=== PATIENT | female | born 1970 | race African-American/Black ===

== ENCOUNTER 2019-02-25 04:56 | Emergency (ER) | payer MEDICAID ==
[~2019-02-25] VITALS: Ht 180.3 cm; Wt 68.0 kg
[2019-02-25 06:10] LABS: BASOPHILS % 0.4 % (0.0-2.0); EOSINOPHILS % 1.1 % (0.0-5.0); HEMOGLOBIN. 11.6 g/dL (12.0-16.0); LYMPHOCYTES % 29.6 % (20.0-50.0); MEAN CORPUSCULAR HEMOGLOBIN 26.3 pg (28.0-32.0); MEAN CORPUSCULAR VOLUME 81.2 fL (81.0-99.0); MONOCYTES % 12.7 % (2.0-8.0); NEUTROPHILS % 56.2 % (40.0-76.0); PLATELET 374 x1000/uL (130-400); RED BLOOD CELL COUNT 4.43 mill/uL (4.2-5.4); RED CELL DISTRIBUTION WIDTH 15.8 % (11.6-14.6)
[2019-02-25] MEDS ORDERED: LORAZEPAM 1MG TABLET PO ONE (06:15)
[2019-02-25] MEDS ORDERED: OLANZAPINE 5MG TABLET ODT PO ONE (06:15)
[2019-02-25 06:16] LABS: CHLORIDE 107 mEq/L (98-107); INR 0.9; PROTHROMBIN TIME 9.7 sec (9.6-11.0)
[2019-02-25 06:21] LABS: ETHANOL BLOOD < 10 mg/dL
[2019-02-25 06:22] LABS: HCG SCREEN NEGATIVE
[2019-02-25 06:25] LABS: CREATINE KINASE 88 IU/L (26-192)
[2019-02-25 06:34] LABS: CLARITY URINE TURBID (CLEAR); COLOR URINE YELLOW (YELLOW); KETONES URINE NEGATIVE (NEGATIVE); LEUKOCYTE ESTERASE URINE 2+ (NEGATIVE); NITRITE URINE NEGATIVE (NEGATIVE); OCCULT BLOOD URINE 1+ (NEGATIVE); PROTEIN URINE TRACE (NEGATIVE); SPECIFIC GRAVITY URINE 1.023 (1.005-1.030); UROBILINOGEN URINE 0.2 E.U./dL (0.2-1.0)
[2019-02-25 06:43] LABS: *AMPHETAMINES SCREEN URINE NEGATIVE (NEGATIVE); *BARBITURATES SCREEN URINE NEGATIVE (NEGATIVE); *BENZODIAZEPINES SCREEN URINE NEGATIVE (NEGATIVE); METHADONE URINE SCREEN NEGATIVE (NEGATIVE); OPIATES URINE SCREEN NEGATIVE (NEGATIVE); PHENCYCLIDINE URINE SCREEN NEGATIVE (NEGATIVE)
[2019-02-25 06:55] LABS: *COCAINE SCREEN URINE PRESUMTIVE POSITIVE (NEGATIVE); CANNABINOID URINE SCREEN PRESUMTIVE POSITIVE (NEGATIVE)
[2019-02-26] MEDS: OLANZAPINE 5MG TABLET PO SCH ×2 (05:05→09:00)
[2019-02-27] MEDS: OLANZAPINE 5MG TABLET PO SCH (06:27)
[2019-02-27] MEDS ORDERED: DIPHENHYDRAMINE 50MG/ML VIAL IM ONE (16:30)
[2019-02-27] MEDS ORDERED: LORAZEPAM 2MG/ML CPJ IM ONE (16:30)
[2019-02-27] MEDS ORDERED: AMOXICILLIN/POTASSIUM CLAVULANATE 875/125MG TAB PO ONE (20:15)
[2019-02-27] MEDS ORDERED: TETANUS, DIPHTHERIA, PERTUSSIS VAC/PF 0.5ML (>7YR OLD) IM ONE (20:15)
[2019-02-28] MEDS ORDERED: OLANZAPINE 5MG TABLET PO SCH (09:00)
[2019-02-28] MEDS ORDERED: CEPHALEXIN 250MG CAPSULE PO SCH ×2 (09:00)
[2019-02-28] MEDS ORDERED: AMOXICILLIN/POTASSIUM CLAVULANATE 875/125MG TAB PO SCH ×2 (09:00→21:00)
[2019-02-28 17:39] VITALS: BP 122/96
== END 2019-02-28 18:53 | disposition home or self-care (01) ==
LOC: ER 04:56
DX: R45.851 Suicidal ideations (principal); F31.9 Bipolar disorder, unspecified; F14.10 Cocaine abuse, uncomplicated; F12.10 Cannabis abuse, uncomplicated; F17.200 Nicotine dependence, unspecified, uncomplicated
CPT/HCPCS: 36415; 80305; 80307; 80320; 80329; 81003; 82550; 84443; 84703; 99284; G0480

== ENCOUNTER 2021-06-14 03:06 | Emergency (ER) | payer MEDICAID, OTHER ==
[~2021-06-14] VITALS: Ht 180.3 cm; Wt 68.0 kg
[2021-06-14] MEDS ORDERED: MAGNESIUM/ALUMINUM HYDROXIDE/SIMETHICONE 30ML UDC PO STA (03:48)
[2021-06-14] MEDS ORDERED: ONDANSETRON HCL 4MG/2ML INJ IV STA (03:48)
[2021-06-14] MEDS ORDERED: MORPHINE SULFATE 4 MG/ML CPJ (NOT FOR IM USE) IV STA (03:48)
[2021-06-14] MEDS ORDERED: VISCOUS LIDOCAINE 2% 15 ML UDC PO STA (03:48)
[2021-06-14] MEDS ORDERED: SODIUM CHLORIDE 0.9% 1,000 ML IV ONE (04:00)
[2021-06-14 05:08] LABS: BASOPHILS % 0.3 % (0.0-2.0); EOSINOPHILS % 0.5 % (0.0-5.0); HEMATOCRIT. 34.3 % (36.0-48.0); LYMPHOCYTES % 11.4 % (20.0-50.0); MEAN CORPUSCULAR HEMOGLOBIN 22.8 pg (28.0-32.0); MEAN PLATELET VOLUME 7.3 fl (7.4-10.4); MONOCYTES % 6.1 % (2.0-8.0); NEUTROPHILS % 81.7 % (40.0-76.0); PLATELET 541 x1000/uL (130-400); RED BLOOD CELL COUNT 4.84 mill/uL (4.2-5.4); RED CELL DISTRIBUTION WIDTH 16.1 % (11.6-14.6)
[2021-06-14 05:13] LABS: CHLORIDE 97 mEq/L (98-107)
[2021-06-14 07:50] LABS: CLARITY URINE CLOUDY (CLEAR); COLOR URINE YELLOW (YELLOW); KETONES URINE 2+ (NEGATIVE); LEUKOCYTE ESTERASE URINE 3+ (NEGATIVE); NITRITE URINE NEGATIVE (NEGATIVE); OCCULT BLOOD URINE 1+ (NEGATIVE); PH URINE 7.5 (4.5-8.0); PROTEIN URINE NEGATIVE (NEGATIVE); SPECIFIC GRAVITY URINE 1.012 (1.005-1.030)
[2021-06-14] MEDS ORDERED: CEFTRIAXONE 1 G PREMIX 50 ML IV ONE (08:45)
[2021-06-14] MEDS ORDERED: CEFP200T13 MT (10:23)
[2021-06-14 10:47] VITALS: BP 126/64
== END 2021-06-14 10:16 | disposition home health service (06) ==
LOC: ER 03:06
DX: N39.0 Urinary tract infection, site not specified (principal); R11.2 Nausea with vomiting, unspecified; F14.10 Cocaine abuse, uncomplicated; F12.10 Cannabis abuse, uncomplicated; F31.9 Bipolar disorder, unspecified
CPT/HCPCS: 36415; 71045; 80053; 81003; 83690; 85025; 87086; 93005; 96361; 96365; 96375; 99285; J0696; J2270; J2405; J7030

== ENCOUNTER 2021-07-03 05:45 | Emergency (ER) | payer MEDICAID ==
[~2021-07-03] VITALS: Ht 180.3 cm; Wt 59.3 kg
[~2021-07-03 05:45] MED LIST: CEFP200T13 MT
[2021-07-03] MEDS ORDERED: FAMOTIDINE 20MG/2ML VIAL IV STA (06:33)
[2021-07-03] MEDS ORDERED: METOCLOPRAMIDE HCL 10MG/2ML VIAL IV STA (06:33)
[2021-07-03] MEDS ORDERED: KETOROLAC 15MG/ML VIAL IV ONE (06:45)
[2021-07-03] MEDS ORDERED: HALOPERIDOL LACTATE 5MG/ML VIAL IM ONE (06:45)
[2021-07-03 06:49] LABS: CLARITY URINE TURBID (CLEAR); COLOR URINE DARK YELLOW (YELLOW); KETONES URINE TRACE (NEGATIVE); LEUKOCYTE ESTERASE URINE 3+ (NEGATIVE); NITRITE URINE NEGATIVE (NEGATIVE); OCCULT BLOOD URINE 3+ (NEGATIVE); PROTEIN URINE 2+ (NEGATIVE); SPECIFIC GRAVITY URINE 1.025 (1.005-1.030)
[2021-07-03 07:20] LABS: CHLORIDE 101 mEq/L (98-107); HCG SCREEN NEGATIVE
[2021-07-03 07:26] LABS: ETHANOL BLOOD < 10 mg/dL
[2021-07-03 07:27] LABS: HEMATOCRIT. 30.1 % (36.0-48.0); HEMOGLOBIN. 9.3 g/dL (12.0-16.0); MEAN CORPUSCULAR HEMOGLOBIN 21.7 pg (28.0-32.0); MEAN CORPUSCULAR VOLUME 70.4 fL (81.0-99.0); RED BLOOD CELL COUNT 4.27 mill/uL (4.2-5.4); RED CELL DISTRIBUTION WIDTH 16.3 % (11.6-14.6)
[2021-07-03 08:14] LABS: PLATELET 501 x1000/uL (130-400)
[2021-07-03 08:21] LABS: PLATELET ESTIMATE INCREASED
[2021-07-03 10:49] LABS: *AMPHETAMINES SCREEN URINE NEGATIVE (NEGATIVE); *BARBITURATES SCREEN URINE NEGATIVE (NEGATIVE)
[2021-07-03 10:50] LABS: *BENZODIAZEPINES SCREEN URINE NEGATIVE (NEGATIVE); *COCAINE SCREEN URINE PRESUMTIVE POSITIVE (NEGATIVE)
[2021-07-03] MEDS ORDERED: HALOPERIDOL LACTATE 5MG/ML VIAL IM SCH (10:50)
[2021-07-03 10:51] LABS: CANNABINOID URINE SCREEN PRESUMTIVE POSITIVE (NEGATIVE); METHADONE URINE SCREEN NEGATIVE (NEGATIVE); OPIATES URINE SCREEN NEGATIVE (NEGATIVE); PHENCYCLIDINE URINE SCREEN NEGATIVE (NEGATIVE)
[2021-07-03] MEDS ORDERED: NITR-87 MT (11:20)
[2021-07-03] MEDS ORDERED: POLY17PO3 MT (11:56)
[2021-07-03 12:35] VITALS: BP 118/76
== END 2021-07-03 12:35 | disposition home or self-care (01) ==
LOC: ER 05:45
DX: N39.0 Urinary tract infection, site not specified (principal); F12.10 Cannabis abuse, uncomplicated; F14.10 Cocaine abuse, uncomplicated
CPT/HCPCS: 36415; 74176; 80053; 80305; 80320; 81003; 83605; 83690; 84703; 85025; 96372; 96374; 96375; 99284; J1630; J1885; J2765; J3490; G0480

== ENCOUNTER 2021-07-14 17:11 | Emergency (ER) | payer MEDICAID ==
[~2021-07-14] VITALS: Ht 177.8 cm; Wt 59.0 kg
[~2021-07-14 17:11] MED LIST changes: +NITR-87 MT; +POLY17PO3 MT
[2021-07-14 17:14] VITALS: BP 110/88
== END 2021-07-14 21:00 | disposition left against medical advice (07) ==
LOC: ER 17:11
DX: Z53.21 Procedure and treatment not carried out due to patient leaving prior to being seen by health care provider (principal)